=== PATIENT | male | born 1960 | race Asian ===

== ENCOUNTER 2018-07-01 21:39 | Inpatient (IN) | payer BC, OTHER ==
[~2018-07-01] VITALS: Ht 157.5 cm; Wt 66.5 kg
[2018-07-01 23:20] LABS: Basophils # (auto) 0 uL; Basophils % (auto) 0.3 % (0.0-2.0); Eosinophils # (auto) 0.1 uL; Eosinophils % (auto) 0.8 % (0.0-7.0); Hematocrit 40.2 % (41.0-53.0); Hemoglobin 13.3 g/dL (13.5-17.5); Lymphocytes # (auto) 0.9 uL; Lymphocytes % (auto) 6.8 % (10.0-50.0); Mean Corpuscular Hgb Conc. 33.1 g/dL (32.0-36.0); Mean Corpuscular Volume 93.7 fL (80.0-100.0); Monocytes # (auto) 0.8 uL; Monocytes % (auto) 6.4 % (0.0-12.0); Neutrophils # (auto) 10.8 uL; Neutrophils % (auto) 85.7 % (37.0-80.0); Nucleated Red Blood Cells % 0.1 %; Platelet Count (auto) 279 10^3/uL (140-450); Red Blood Cells 4.29 10^6/uL (4.5-5.90); White Blood Cell 12.6 10^3/uL (4.4-10.8)
[2018-07-01 23:44] LABS: Albumin 3.4 g/dL (3.4-5.0); Calcium 7.9 mg/dL (8.5-10.1); Potassium 5.1 mmol/L (3.5-5.1)
[2018-07-01 23:49] LABS: BUN/Creatinine Ratio 18.5; Bilirubin, Total 0.9 mg/dL (0.2-1.0); Total Protein 7.8 g/dL (6.4-8.2)
[2018-07-02] MEDS ORDERED: ASPirin 81 mg TAB PO ONE ×2 (00:15→01:45)
[2018-07-02 00:39] LABS: INR 1.33 (0.9-1.15); Partial Thromboplastin Time 24.5 sec (23.78-33.04)
[2018-07-02] MEDS ORDERED: HEPARIN DRIP/D5W 100UNITS/ML 250 ML IV SCH ×2 (01:40→06:08)
[2018-07-02] MEDS ORDERED: HEPARIN SODIUM (PORCINE) 5000 UNITS/ML 1ML VIAL IV ONE ×2 (01:45→06:15)
[2018-07-02] MEDS ORDERED: FUROSEMIDE 20 MG/2 ML VIAL IV ONE (02:00)
[2018-07-02 02:33] LABS: INR 1.31 (0.9-1.15); Partial Thromboplastin Time 23.6 sec (23.78-33.04); Prothrombin Time 13.8 sec (9.27-12.13)
[2018-07-02 05:32] LABS: Albumin 3.2 g/dL (3.4-5.0); Calcium 7.3 mg/dL (8.5-10.1); Magnesium 2.3 mg/dL (1.6-2.6); Potassium 4.7 mmol/L (3.5-5.1)
[2018-07-02 05:37] LABS: BUN/Creatinine Ratio 22.3; Bilirubin, Total 0.9 mg/dL (0.2-1.0); Total Protein 7.2 g/dL (6.4-8.2)
[2018-07-02] MEDS ORDERED: SODIUM CHLOR 0.9% PF (SALINE LOCK) 10ML VIAL/SYR IV SCH (06:00)
[2018-07-02 06:07] LABS: Urine Bacteria FEW /hpf (None Seen); Urine Blood Negative /uL (Negative); Urine Hyaline Cast MOD /lpf (0 - 2); Urine Mucus FEW (None Seen); Urine Specific Gravity 1.008 (1.001-1.035); Urine WBC 1 /hpf (0 - 3)
[2018-07-02] MEDS ORDERED: HEPARIN SODIUM (PORCINE) 5000 UNITS/ML 1ML VIAL ONE (06:19)
[2018-07-02] MEDS ORDERED: CLOPIDOGREL BISULFATE 75 MG TAB PO ONE (07:00)
[2018-07-02 07:13] LABS: Basophils # (auto) 0.1 uL; Basophils % (auto) 0.5 % (0.0-2.0); Eosinophils # (auto) 0 uL; Eosinophils % (auto) 0.2 % (0.0-7.0); Hematocrit 38.2 % (41.0-53.0); Hemoglobin 12.4 g/dL (13.5-17.5); Lymphocytes % (auto) 10.6 % (10.0-50.0); Mean Corpuscular Hemoglobin 30.5 pg (28.0-32.0); Mean Corpuscular Hgb Conc. 32.4 g/dL (32.0-36.0); Monocytes # (auto) 0.8 uL; Monocytes % (auto) 8.8 % (0.0-12.0); Neutrophils # (auto) 7.7 uL; Neutrophils % (auto) 79.9 % (37.0-80.0); Platelet Count (auto) 249 10^3/uL (140-450); Red Blood Cells 4.06 10^6/uL (4.5-5.90); Red Cell Distribution Width 13.1 % (11.8-14.3); White Blood Cell 9.6 10^3/uL (4.4-10.8)
[2018-07-02 07:28] LABS: INR 1.47 (0.9-1.15); Prothrombin Time 15.4 sec (9.27-12.13)
[2018-07-02 07:29] LABS: Calcium 7.3 mg/dL (8.5-10.1); Magnesium 2.2 mg/dL (1.6-2.6); Potassium 4.5 mmol/L (3.5-5.1)
[2018-07-02 07:34] LABS: BUN/Creatinine Ratio 23.1; Bilirubin, Total 0.8 mg/dL (0.2-1.0)
[2018-07-02 07:36] LABS: Partial Thromboplastin Time 96.5 sec (23.78-33.04)
[2018-07-02] MEDS ORDERED: ONDANSETRON HCL 4 MG/2 ML VIAL IV PRN (08:15)
[2018-07-02] MEDS ORDERED: NITROGLYCERIN 0.4 MG SL TAB SL PRN (08:15)
[2018-07-02] MEDS ORDERED: ACETAMINOPHEN 500 MG TAB PO PRN (08:15)
[2018-07-02] MEDS ORDERED: MORPHINE SULFATE 10 MG/ML INJ 1ML SDV IV PRN (08:15)
[2018-07-02 09:11] LABS: Cholesterol 142 mg/dL (< 200); HDL Cholesterol 30 mg/dL (40-59); LDL Cholesterol 113 mg/dL (< 100); Triglycerides 68 mg/dL (< 150)
[2018-07-02 10:41] LABS: INR 1.26 (0.9-1.15); Partial Thromboplastin Time 31.2 sec (23.78-33.04); Prothrombin Time 13.3 sec (9.27-12.13)
[2018-07-02] MEDS: HEPARIN DRIP/D5W 100UNITS/ML 250 ML IV SCH ×2 (11:24→18:49)
--- NOTE | 2018-07-02 11:46 | NUR ---
ADMIT NOTE PATIENT ARRIVED TO FLOOR. ORIENTATED TO MASHA ZURITA AND STUDENT NURSE KAREN.. PATIENT RESTING IN BED SEMI HOWARD. RESPIRATIONS EVEN AND UNLABORED. A&O x4. NO S/S OF OR DISTRESS. DENIES PAIN. ON 1L NC. TELE #39. ACCOMPANIED BY . PATIENT UPDATED ON POC. ALL QUESTIONS ANSWERED. ORIENTATED TO FLOOR. BED IN LOWEST LOCKED POSITION. SIDE RAILS UP x2. CALL LIGHT WITHIN REACH. WILL CONTINUE TO MONITOR Q1HR AND PRN. Signed: 07/02/18 at 1345 by SN DARLINE <Co-Signature Required> Co-Signed: 07/02/18 at 1345 by Marsha Rosado RN
[2018-07-02 11:49] VITALS: BP 96/61
[2018-07-02 13:00] VITALS: BP 96/61
[2018-07-02] MEDS ORDERED: SODIUM CHLORIDE 0.9% 1,000 ML IV ONE (13:00)
--- NOTE | 2018-07-02 13:05 | NUR ---
MD was at bedside - Dr. Sofia Black was at bedside discussing POC with the patient and patient's spouse at bedside. POC discussed with this RN. Verbal orders received. MD to place orders.
--- NOTE | 2018-07-02 13:15 | NUR ---
IV started 20G IV started to the RAC with clean technique on the second attempt. IV secured. IV education provided to the patient. Patient verbalized understanding.
--- NOTE | 2018-07-02 13:55 | NUR ---
I spoke with [facility] Flour Inspector Tyra Salinas, patient to be transferred to [facility], awaiting bed assignment-auth number for [facility] is [id number], I placed [facility] on will-call and relayed this information to nurse Larson.
[2018-07-02] MEDS: SODIUM CHLOR 0.9% PF (SALINE LOCK) 10ML VIAL/SYR IV SCH ×2 (14:00→22:29)
--- NOTE | 2018-07-02 14:50 | NUR ---
RE: critical troponin Critical troponin received by Armando, student assistant customer service manager, and Sanjuanita, unit manager rn, while this RN was at lunch. Lab value trending down. Dr. Black aware of troponin level. Will continue to monitor q1hr & PRN.
--- NOTE | 2018-07-02 16:10 | NUR ---
Patient resting in bed with even and unlabored respirations. Patient denies pain at this time. Heparin infusing as orders. Family member at bedside. Call light within reach.
--- NOTE | 2018-07-02 17:04 | NUR ---
Paged on-call manager social services Paged ROBERT Payne, to receive update on transfer to [facility]. Spoke with NAYELY Elizabeth.
--- NOTE | 2018-07-02 17:09 | NUR ---
Received phone call from on-call ROBERT Spoke with ROBERT Payne. This RN instructed that [facility] will contact the primary nurse when a bed has been assigned to the patient.
--- NOTE | 2018-07-02 17:12 | NUR ---
Called housekeeping associate at [facility] To check bed availability. No answer. Voicemail left.
[2018-07-02 17:14] VITALS: BP 104/74
[2018-07-02 18:09] LABS: INR 1.26 (0.9-1.15); Partial Thromboplastin Time 39.5 sec (23.78-33.04); Prothrombin Time 13.3 sec (9.27-12.13)
--- NOTE | 2018-07-02 18:32 | NUR ---
RE: critical troponin Received critical troponin result. Level is trending down. Dr. Black and Dr. Rodriguez are aware of elevated troponin. Patient denies CP and SOB. Will continue to monitor q1hr & PRN.
--- NOTE | 2018-07-02 18:40 | NUR ---
RE: Heparin and Xarelto concurrently Spoke with Dr. Rodriguez. Patient is to receive two scheduled doses of Xarelto while continuing Heparin concurrently. After the second dose of Xarelto, Heparin is to be discontinued per Dr. Rodriguez. Pharmacist has been informed.
--- NOTE | 2018-07-02 19:27 | NUR ---
End of shift patient resting in bed with even and unlabored respirations on 1L NC. Patient instructed on bedrest orders. Patient verbalized understanding. IV sites are patent with no s/s of phlebitis or infiltration noted. Family at bedside. Family and patient are aware of pending transfer to [facility]. Care endorsed to MASHA Barclay.
--- NOTE | 2018-07-02 20:03 | NUR ---
PAGED DR SWAN REGARDING PATIENT HR 130-140S. RECEIVED ORDER FOR METOPROLOL 50MG PO NOW. TORBO.
[2018-07-02] MEDS ORDERED: METOPROLOL TARTRATE 50 MG TAB PO ONE (20:15)
--- NOTE | 2018-07-02 20:20 | NUR ---
ADMINISTERED METOPROLOL 50MG PO PRESCRIBED, PATIENT TOLERATED WELL. PATIENT CONTINUES ON HEPARIN GTT 9.5ML/HR. WILL CONTINUE TO MONITOR PATIENT.
[2018-07-02] MEDS ORDERED: OMEP20TA PO (20:23)
[2018-07-02] MEDS ORDERED: METO-158 PO (20:23)
[2018-07-02] MEDS ORDERED: SIMV-13 PO (20:23)
[2018-07-02 22:00] VITALS: BP 113/80
[2018-07-02] MEDS ORDERED: ATORVASTATIN 20 MG TAB PO SCH (22:00)
[2018-07-02] MEDS: RIVAROXABAN 15 MG TAB PO SCH (22:28)
--- NOTE | 2018-07-02 22:31 | NUR ---
PAGED DR SWAN REGARDING PATIENT HR REMAINS 135-140S SUSTAINED. RECEIVED ORDER FOR DIGOXIN 0.5MG IVP X1. TORBO.
[2018-07-02] MEDS ORDERED: DIGOXIN (250MCG/ML) 2 ML AMPULE IV ONE (23:00)
--- NOTE | 2018-07-02 23:15 | NUR ---
PATIENT CURRENT TELEMETRY ST 138 SUSTAINED. ALERTED TANBARK LABORER TO WATCH PATIENT TELEMETRY DURING DIGOXIN IV PUSH. ADMINISTERED DIGOXIN 0.5M IVP PRESCRIBED. PATIENT TOLERATED WELL. WILL CONTINUE TO MONTIOR PATIENT.
--- NOTE | 2018-07-02 23:46 | NUR ---
PATIENT CURRENTLY HR 115-120S
[2018-07-03 01:26] LABS: INR 1.68 (0.9-1.15); Prothrombin Time 17.5 sec (9.27-12.13)
[2018-07-03 01:30] LABS: Partial Thromboplastin Time 115.5 sec (23.78-33.04)
--- NOTE | 2018-07-03 01:35 | NUR ---
PATIENT CURRENT PTT 115.55. PER HEPARIN GTT PROTOCOL HOLD FOR 1 HR AND DECREASE RATE BY 3ML/HR 9.5ML/HR TO 6.5ML/HR. WILL RESTART HEPARIN GTT 0230
[2018-07-03 05:22] VITALS: BP 116/54
[2018-07-03] MEDS: SODIUM CHLOR 0.9% PF (SALINE LOCK) 10ML VIAL/SYR IV SCH ×2 (05:39→13:04)
[2018-07-03 06:50] LABS: Basophils # (auto) 0.1 uL; Basophils % (auto) 0.9 % (0.0-2.0); Eosinophils # (auto) 0 uL; Eosinophils % (auto) 0.5 % (0.0-7.0); Hematocrit 35.9 % (41.0-53.0); Hemoglobin 11.9 g/dL (13.5-17.5); Lymphocytes # (auto) 0.9 uL; Lymphocytes % (auto) 9.7 % (10.0-50.0); Mean Corpuscular Hemoglobin 31.6 pg (28.0-32.0); Mean Corpuscular Hgb Conc. 33.3 g/dL (32.0-36.0); Mean Corpuscular Volume 94.8 fL (80.0-100.0); Monocytes # (auto) 0.7 uL; Neutrophils # (auto) 7.2 uL; Neutrophils % (auto) 80.9 % (37.0-80.0); Nucleated Red Blood Cells % 0.1 %; Platelet Count (auto) 226 10^3/uL (140-450); Red Blood Cells 3.78 10^6/uL (4.5-5.90); Red Cell Distribution Width 13.5 % (11.8-14.3)
[2018-07-03 07:00] LABS: INR 1.41 (0.9-1.15); Partial Thromboplastin Time 67.1 sec (23.78-33.04); Prothrombin Time 14.8 sec (9.27-12.13)
[2018-07-03 07:02] LABS: Calcium 7.1 mg/dL (8.5-10.1); Potassium 4.2 mmol/L (3.5-5.1)
[2018-07-03 07:06] LABS: BUN/Creatinine Ratio 28.5
--- NOTE | 2018-07-03 07:17 | NUR ---
HEPARIN GTT NO CHANGE HEPARIN GTT IS CURRENTLY 6.5ML/HR. CURRENT PTT 67.1 NO CHANGE IN HEPARIN GTT RATE. CONTINUE THERAPY.
--- NOTE | 2018-07-03 07:20 | NUR ---
Opening Shift Note Assumed care of patient, awake and alert. No S/S of distress/SOB or pain. Heparin drip currently infusing. Orders noted to stop heparin @ 1000 after second Xarelto dose. Insructed on POC and to callfor assist PRN, will continue to monitor for changes Q1hr and PRN.
[2018-07-03 08:00] VITALS: BP 113/67
[2018-07-03 09:06] VITALS: BP 113/67
[2018-07-03] MEDS ORDERED: METOPROLOL TARTRATE 50 MG TAB PO SCH (10:00)
[2018-07-03] MEDS ORDERED: ASPirin-EC 81 mg tab PO SCH (10:00)
[2018-07-03] MEDS ORDERED: ASPirin 81 mg TAB PO SCH ×2 (10:00)
--- NOTE | 2018-07-03 10:10 | NUR ---
Heparin IV Heparin stopped after second Xarelto dose per order.
[2018-07-03] MEDS: RIVAROXABAN 15 MG TAB PO SCH (10:16)
[2018-07-03] MEDS ORDERED: HEPARIN DRIP/D5W 100UNITS/ML 250 ML IV SCH (11:44)
[2018-07-03] MEDS ORDERED: HEPARIN SODIUM (PORCINE) 5000 UNITS/ML 1ML VIAL IV ONE (11:45)
[2018-07-03] MEDS ORDERED: SODIUM CHLORIDE 0.9% 1,000 ML IV SCH (12:00)
[2018-07-03 12:31] LABS: INR 1.54 (0.9-1.15); Partial Thromboplastin Time 40.7 sec (23.78-33.04); Prothrombin Time 16.1 sec (9.27-12.13)
[2018-07-03 12:55] LABS: Basophils # (auto) 0.1 uL; Basophils % (auto) 0.5 % (0.0-2.0); Eosinophils # (auto) 0.2 uL; Eosinophils % (auto) 1.9 % (0.0-7.0); Hemoglobin 12.1 g/dL (13.5-17.5); Lymphocytes % (auto) 9.8 % (10.0-50.0); Mean Corpuscular Hemoglobin 31.4 pg (28.0-32.0); Mean Corpuscular Hgb Conc. 32.8 g/dL (32.0-36.0); Mean Corpuscular Volume 95.9 fL (80.0-100.0); Monocytes # (auto) 0.9 uL; Monocytes % (auto) 9.1 % (0.0-12.0); Neutrophils # (auto) 8.1 uL; Neutrophils % (auto) 78.7 % (37.0-80.0); Nucleated Red Blood Cells % 0.1 %; Platelet Count (auto) 237 10^3/uL (140-450); Red Blood Cells 3.86 10^6/uL (4.5-5.90); Red Cell Distribution Width 13.8 % (11.8-14.3); White Blood Cell 10.3 10^3/uL (4.4-10.8)
[2018-07-03 13:09] VITALS: BP 116/64
--- NOTE | 2018-07-03 13:30 | NUR ---
Heparin drip Heparin restarted per Dr. Black after labs obtained. Heparin started @ 12 cc/hr per protocol.
[2018-07-03 17:16] VITALS: BP 117/65
--- NOTE | 2018-07-03 17:20 | NUR ---
[facility] Notified by Dr. Black that bed available at [facility] for room 235A.
--- NOTE | 2018-07-03 17:35 | NUR ---
Instructed by Dr. Black to stop Heparin while patient in transport. Heparin to be restarted once patient gets to [facility].
[2018-07-03 17:49] VITALS: BP 116/64
--- NOTE | 2018-07-03 17:56 | NUR ---
Transport to [facility] Report called to Ermelinda FLANAGAN at [facility]. Patient's Cassia called to give update. puppet master set for around 1900.
--- NOTE | 2018-07-03 19:10 | NUR ---
Pt being trans to another hosp Order obtained for transfer of ZEB GRANDA to [facility]. Report called/given to Ermelinda FLANAGAN. Report given to EMS transport team. Medication reconciliation form completed and copy given to patient. Transported via ambulance along with copied chart and imaging films/disk and all personal belongings. No distress noted on time of departure. Family notified of destination and room number, verbalized understanding. NOTE: []
== END 2018-07-03 19:25 | disposition short-term general hospital (02) | DRG 280 ==
LOC: ER 21:41 → OVERFLOW 07-02 08:13 → TELE-WESTW 07-02 11:55
PROVIDERS: ADMIT Nurse Practitioner Family; ATTEND Nurse Practitioner Family
DX: I21.4 Non-ST elevation (NSTEMI) myocardial infarction (principal); I26.99 Other pulmonary embolism without acute cor pulmonale; I42.9 Cardiomyopathy, unspecified; N17.9 Acute kidney failure, unspecified; D68.59 Other primary thrombophilia; D64.9 Anemia, unspecified; E78.5 Hyperlipidemia, unspecified; E86.0 Dehydration; I05.0 Rheumatic mitral stenosis; I08.0 Rheumatic disorders of both mitral and aortic valves; I11.0 Hypertensive heart disease with heart failure; I50.9 Heart failure, unspecified; I70.0 Atherosclerosis of aorta; K72.90 Hepatic failure, unspecified without coma; R94.5 Abnormal results of liver function studies
CPT/HCPCS: 36415; 71045; 78582; 80048; 80053; 80061; 81001; 82140; 83605; 83615; 83735; 83880; 84443; 84484; 85025; 85379; 85610; 85730; 87040; 93005; 93306; 94761; 96361; 96365; 96375; G0378

== ENCOUNTER → 2022-09-09 | Outpatient (CLI) | payer OTHER ==
[~2022-09-09] MED LIST: GASTROGRAFIN 120 ML SOL ONE; METO-158 PO; OMEP20TA PO; SIMV-13 PO
[2022-09-09 07:42] LABS: Basophils # (auto) 0.1 10 ^3/uL (0-0.2); Basophils % (auto) 1.2 % (0.0-2.0); Eosinophils # (auto) 0.4 10 ^3/uL (0-0.8); Eosinophils % (auto) 5.8 % (0.0-7.0); Hematocrit 42.6 % (41.0-53.0); Hemoglobin 14.4 g/dL (13.5-17.5); Lymphocytes # (auto) 1.5 10 ^3/uL (0.4-5.4); Lymphocytes % (auto) 22.4 % (10.0-50.0); Mean Corpuscular Hemoglobin 31.5 pg (28.0-32.0); Mean Corpuscular Hgb Conc. 33.9 g/dL (32.0-36.0); Mean Corpuscular Volume 92.8 fL (80.0-100.0); Monocytes # (auto) 0.6 10 ^3/uL (0-1.3); Monocytes % (auto) 9.2 % (0.0-12.0); Neutrophils % (auto) 61.4 % (37.0-80.0); Nucleated Red Blood Cells % 0.3 %; Red Blood Cells 4.59 10^6/uL (4.5-5.90); Red Cell Distribution Width 12.5 % (11.8-14.3); White Blood Cell 6.6 10^3/uL (4.4-10.8)
[2022-09-09 08:12] LABS: Albumin 3.8 g/dL (3.4-5.0); Bilirubin, Direct 0.2 mg/dL (0-0.2); Bilirubin, Total 0.8 mg/dL (0.2-1.0); Calcium 8.9 mg/dL (8.5-10.1); Potassium 4.2 mmol/L (3.5-5.1)
== END | disposition home or self-care (01) ==
LOC: LAB 06:53
PROVIDERS: ATTEND Specialist
DX: I10 Essential (primary) hypertension (principal); R94.5 Abnormal results of liver function studies; E11.8 Type 2 diabetes mellitus with unspecified complications; D64.9 Anemia, unspecified; E03.9 Hypothyroidism, unspecified; E78.5 Hyperlipidemia, unspecified
CPT/HCPCS: 36415; 80048; 80061; 80076; 83036; 84443; 85025; Q9963

== ENCOUNTER → 2022-11-18 | Outpatient (CLI) | payer OTHER ==
[~2022-11-18] MED LIST changes: -GASTROGRAFIN 120 ML SOL ONE
[2022-11-18 07:05] LABS: Basophils # (auto) 0.1 10 ^3/uL (0-0.2); Basophils % (auto) 1.1 % (0.0-2.0); Eosinophils # (auto) 0.6 10 ^3/uL (0-0.8); Eosinophils % (auto) 8.8 % (0.0-7.0); Hematocrit 41.3 % (41.0-53.0); Hemoglobin 13.9 g/dL (13.5-17.5); Lymphocytes # (auto) 1.6 10 ^3/uL (0.4-5.4); Lymphocytes % (auto) 24.8 % (10.0-50.0); Mean Corpuscular Hgb Conc. 33.8 g/dL (32.0-36.0); Mean Corpuscular Volume 91.8 fL (80.0-100.0); Monocytes # (auto) 0.6 10 ^3/uL (0-1.3); Monocytes % (auto) 8.7 % (0.0-12.0); Neutrophils # (auto) 3.6 10 ^3/uL (1.6-8.6); Neutrophils % (auto) 56.6 % (37.0-80.0); Nucleated Red Blood Cells % 0.1 %; Red Blood Cells 4.49 10^6/uL (4.5-5.90); Red Cell Distribution Width 12.4 % (11.8-14.3); White Blood Cell 6.4 10^3/uL (4.4-10.8)
[2022-11-18 07:52] LABS: Albumin 3.9 g/dL (3.4-5.0); Calcium 8.8 mg/dL (8.5-10.1); Potassium 4.3 mmol/L (3.5-5.1); Uric Acid 10.2 mg/dL (3.5-7.2)
[2022-11-18 07:57] LABS: BUN/Creatinine Ratio 15.2 (10.0-20.0); Bilirubin, Direct 0.2 mg/dL (0-0.2); Bilirubin, Total 0.9 mg/dL (0.2-1.0); Total Protein 7.8 g/dL (6.4-8.2)
== END | disposition home or self-care (01) ==
LOC: LAB 06:47
PROVIDERS: ATTEND Specialist
DX: I10 Essential (primary) hypertension (principal); R94.5 Abnormal results of liver function studies; D64.9 Anemia, unspecified; E78.5 Hyperlipidemia, unspecified; E11.8 Type 2 diabetes mellitus with unspecified complications; E03.9 Hypothyroidism, unspecified
CPT/HCPCS: 36415; 80053; 80061; 80076; 84550; 85025

== ENCOUNTER → 2023-07-03 | Outpatient (CLI) | payer OTHER ==
[~2023-07-03] MED LIST changes: -SIMV-13 PO; +SIMV40TA18 PO
[2023-07-03 07:03] LABS: Anion Gap 9 (5-15); Carbon Dioxide 24 mmol/L (20-30); Chloride 103 mmol/L (98-107); Potassium 4.5 mmol/L (3.5-5.1); Sodium 136 mmol/L (136-145)
[2023-07-03 07:04] LABS: Calcium 9.5 mg/dL (8.5-10.1)
[2023-07-03 07:09] LABS: BUN/Creatinine Ratio 11.6 (10.0-20.0); Blood Urea Nitrogen 13 mg/dL (9-23); Glucose 96 mg/dL (74-106); Triglycerides 79 mg/dL (< 150)
[2023-07-03 07:10] LABS: LDL Cholesterol 95 mg/dL (< 100)
[2023-07-03 07:11] LABS: Cholesterol 143 mg/dL (< 200); HDL Cholesterol 40 mg/dL (40-59)
[2023-07-03 07:36] LABS: Basophils # (auto) 0 10 ^3/uL (0-0.2); Basophils % (auto) 0.8 % (0.0-2.0); Eosinophils # (auto) 0.2 10 ^3/uL (0-0.8); Eosinophils % (auto) 3.5 % (0.0-7.0); Hematocrit 41.9 % (41.0-53.0); Hemoglobin 13.7 g/dL (13.5-17.5); Lymphocytes # (auto) 1.6 10 ^3/uL (0.4-5.4); Mean Corpuscular Hemoglobin 30.4 pg (28.0-32.0); Mean Corpuscular Hgb Conc. 32.8 g/dL (32.0-36.0); Mean Corpuscular Volume 92.8 fL (80.0-100.0); Monocytes # (auto) 0.8 10 ^3/uL (0-1.3); Monocytes % (auto) 14.2 % (0.0-12.0); Neutrophils # (auto) 2.9 10 ^3/uL (1.6-8.6); Neutrophils % (auto) 52.5 % (37.0-80.0); Nucleated Red Blood Cells % 0.4 %; Red Blood Cells 4.52 10^6/uL (4.5-5.90); Red Cell Distribution Width 13.1 % (11.8-14.3); White Blood Cell 5.5 10^3/uL (4.4-10.8)
[2023-07-03 13:33] LABS: Creatinine, Urine 29.3 mg/dL (30.0-125.0)
== END | disposition home or self-care (01) ==
LOC: LAB 06:10
PROVIDERS: ATTEND Internal Medicine Hematology & Oncology
DX: I10 Essential (primary) hypertension (principal); E11.69 Type 2 diabetes mellitus with other specified complication; E11.59 Type 2 diabetes mellitus with other circulatory complications; E78.5 Hyperlipidemia, unspecified; I48.0 Paroxysmal atrial fibrillation; Z95.818 Presence of other cardiac implants and grafts
CPT/HCPCS: 36415; 80048; 80061; 82043; 82570; 83036; 85025

== ENCOUNTER → 2023-08-03 | Outpatient (CLI) | payer OTHER ==
[2023-08-03 07:04] LABS: Basophils # (auto) 0.1 10 ^3/uL (0-0.2); Eosinophils # (auto) 0.6 10 ^3/uL (0-0.8); Eosinophils % (auto) 6.3 % (0.0-7.0); Hematocrit 42.3 % (41.0-53.0); Hemoglobin 14.1 g/dL (13.5-17.5); Lymphocytes # (auto) 1.5 10 ^3/uL (0.4-5.4); Lymphocytes % (auto) 16.5 % (10.0-50.0); Mean Corpuscular Hemoglobin 30.7 pg (28.0-32.0); Mean Corpuscular Hgb Conc. 33.3 g/dL (32.0-36.0); Mean Corpuscular Volume 92.4 fL (80.0-100.0); Monocytes # (auto) 0.8 10 ^3/uL (0-1.3); Monocytes % (auto) 9.1 % (0.0-12.0); Neutrophils # (auto) 6.1 10 ^3/uL (1.6-8.6); Neutrophils % (auto) 67.1 % (37.0-80.0); Red Blood Cells 4.58 10^6/uL (4.5-5.90); White Blood Cell 9.1 10^3/uL (4.4-10.8)
[2023-08-03 07:40] LABS: Alanine Aminotransferase 23 U/L (7-40); Albumin 4.5 g/dL (3.2-4.8); Alkaline Phosphatase 81 U/L (46-116); Anion Gap 8 (5-15); Aspartate Aminotransferase 27 U/L (13-40); BUN/Creatinine Ratio 14.2 (10.0-20.0); Bilirubin, Direct 0.3 mg/dL (<0.3); Bilirubin, Total 1.1 mg/dL (0.2-1.0); Blood Urea Nitrogen 17 mg/dL (9-23); Calcium 9.5 mg/dL (8.5-10.1); Carbon Dioxide 25 mmol/L (20-30); Chloride 103 mmol/L (98-107); Cholesterol 180 mg/dL (< 200); Glucose 153 mg/dL (74-106); HDL Cholesterol 47 mg/dL (40-59); LDL Cholesterol 116 mg/dL (< 100); Potassium 4.7 mmol/L (3.5-5.1); Sodium 136 mmol/L (136-145); Total Protein 7.9 g/dL (5.7-8.2); Triglycerides 147 mg/dL (< 150)
== END | disposition home or self-care (01) ==
LOC: LAB 06:13
PROVIDERS: ATTEND Specialist
DX: I10 Essential (primary) hypertension (principal); R68.89 Other general symptoms and signs; D64.9 Anemia, unspecified; E03.9 Hypothyroidism, unspecified; E78.5 Hyperlipidemia, unspecified; E11.9 Type 2 diabetes mellitus without complications
CPT/HCPCS: 36415; 80053; 80061; 82248; 85025

== ENCOUNTER → 2023-10-14 | Outpatient (CLI) | payer OTHER ==
[2023-10-14 07:15] LABS: Basophils # (auto) 0.1 10 ^3/uL (0-0.2); Basophils % (auto) 0.9 % (0.0-2.0); Eosinophils # (auto) 0.5 10 ^3/uL (0-0.8); Eosinophils % (auto) 7.6 % (0.0-7.0); Hematocrit 41.6 % (41.0-53.0); Hemoglobin 13.9 g/dL (13.5-17.5); Lymphocytes # (auto) 1.2 10 ^3/uL (0.4-5.4); Lymphocytes % (auto) 18.1 % (10.0-50.0); Mean Corpuscular Hemoglobin 30.7 pg (28.0-32.0); Mean Corpuscular Hgb Conc. 33.4 g/dL (32.0-36.0); Mean Corpuscular Volume 91.8 fL (80.0-100.0); Monocytes # (auto) 0.5 10 ^3/uL (0-1.3); Neutrophils # (auto) 4.2 10 ^3/uL (1.6-8.6); Neutrophils % (auto) 65.4 % (37.0-80.0); Red Blood Cells 4.53 10^6/uL (4.5-5.90); White Blood Cell 6.4 10^3/uL (4.4-10.8)
[2023-10-14 07:48] LABS: Alanine Aminotransferase 21 U/L (7-40); Albumin 4.5 g/dL (3.2-4.8); Alkaline Phosphatase 65 U/L (46-116); Anion Gap 9 (5-15); Aspartate Aminotransferase 22 U/L (13-40); BUN/Creatinine Ratio 22.8 (10.0-20.0); Blood Urea Nitrogen 26 mg/dL (9-23); Calcium 9.5 mg/dL (8.5-10.1); Carbon Dioxide 23 mmol/L (20-30); Chloride 105 mmol/L (98-107); Cholesterol 170 mg/dL (< 200); Glucose 129 mg/dL (74-106); LDL Cholesterol 115 mg/dL (< 100); Potassium 4.2 mmol/L (3.5-5.1); Sodium 137 mmol/L (136-145); Triglycerides 100 mg/dL (< 150)
[2023-10-14 07:49] LABS: Bilirubin, Direct 0.3 mg/dL (<0.3); Bilirubin, Total 1.2 mg/dL (0.2-1.0); HDL Cholesterol 43 mg/dL (40-59); Total Protein 7.9 g/dL (5.7-8.2)
== END | disposition home or self-care (01) ==
LOC: LAB 06:37
PROVIDERS: ATTEND Internal Medicine Hematology & Oncology
DX: E11.69 Type 2 diabetes mellitus with other specified complication (principal); E78.5 Hyperlipidemia, unspecified
CPT/HCPCS: 36415; 80048; 80061; 80076; 83036; 83615; 85025

== ENCOUNTER → 2023-11-03 | Outpatient (CLI) | payer OTHER | END | disposition home or self-care (01) | LOC: LAB 06:39 | PROVIDERS: ATTEND Specialist | DX: I10 Essential (primary) hypertension (principal); E11.9 Type 2 diabetes mellitus without complications; E78.5 Hyperlipidemia, unspecified; E03.9 Hypothyroidism, unspecified; D64.9 Anemia, unspecified; E55.9 Vitamin D deficiency, unspecified; R68.89 Other general symptoms and signs | CPT/HCPCS: 36415; 82306; 83735 ==

== ENCOUNTER → 2024-01-22 | Outpatient (CLI) | payer OTHER ==
[2024-01-22 07:14] LABS: Urine Bacteria None Seen /hpf (None Seen); Urine WBC None Seen /hpf (0 - 3)
[2024-01-22 07:34] LABS: Basophils # (auto) 0.1 10 ^3/uL (0-0.2); Basophils % (auto) 1.1 % (0.0-2.0); Eosinophils # (auto) 0.6 10 ^3/uL (0-0.8); Eosinophils % (auto) 7.7 % (0.0-7.0); Hematocrit 39.1 % (41.0-53.0); Hemoglobin 13.2 g/dL (13.5-17.5); Lymphocytes # (auto) 1.3 10 ^3/uL (0.4-5.4); Lymphocytes % (auto) 16.3 % (10.0-50.0); Mean Corpuscular Hemoglobin 31.2 pg (28.0-32.0); Mean Corpuscular Hgb Conc. 33.9 g/dL (32.0-36.0); Mean Corpuscular Volume 92.1 fL (80.0-100.0); Monocytes # (auto) 0.7 10 ^3/uL (0-1.3); Monocytes % (auto) 9.1 % (0.0-12.0); Neutrophils # (auto) 5.1 10 ^3/uL (1.6-8.6); Neutrophils % (auto) 65.8 % (37.0-80.0); Red Blood Cells 4.24 10^6/uL (4.5-5.90); Red Cell Distribution Width 12.9 % (11.8-14.3); White Blood Cell 7.7 10^3/uL (4.4-10.8)
[2024-01-22 08:02] LABS: Alanine Aminotransferase 36 U/L (7-40); Alkaline Phosphatase 78 U/L (46-116); Anion Gap 9 (5-15); BUN/Creatinine Ratio 18.3 (10.0-20.0); Blood Urea Nitrogen 21 mg/dL (9-23); Calcium 9.2 mg/dL (8.7-10.4); Carbon Dioxide 23 mmol/L (20-30); Chloride 105 mmol/L (98-107); Glucose 167 mg/dL (74-106); Potassium 4.3 mmol/L (3.5-5.1); Sodium 137 mmol/L (136-145)
[2024-01-22 08:03] LABS: Albumin 4.2 g/dL (3.2-4.8); Aspartate Aminotransferase 21 U/L (13-40)
[2024-01-22 08:04] LABS: Bilirubin, Total 0.8 mg/dL (0.2-1.0); Total Protein 7.4 g/dL (5.7-8.2)
[2024-01-22 10:19] LABS: Urine Blood Negative /uL (Negative); Urine Clarity Clear (Clear); Urine Color Colorless (Yellow); Urine Protein, UAD Negative (Negative); Urine Specific Gravity 1.003 (1.001-1.035); Urine Urobilinogen Normal (Negative); Urine pH 5.5 (5.0-9.0)
[2024-01-22 10:47] LABS: Creatinine, Urine 12.52 mg/dL (30.0-125.0)
== END | disposition home or self-care (01) ==
LOC: LAB 06:56
PROVIDERS: ATTEND Internal Medicine Hematology & Oncology
DX: E11.69 Type 2 diabetes mellitus with other specified complication (principal)
CPT/HCPCS: 36415; 80053; 81001; 82043; 82570; 83036; 84439; 84443; 85025; 87086

== ENCOUNTER → 2024-03-16 | Outpatient (CLI) | payer OTHER ==
[~2024-03-16] VITALS: Ht 157.5 cm; Wt 60.8 kg
[~2024-03-16] MED LIST changes: +METOPROLOL TARTRATE 1MG/1ML-5ML VIAL IV ONE
[2024-03-16] MEDS: REGADENOSON 0.4 MG/5 ML SYRG IV ONE ×2 (12:08→12:36)
== END | disposition home or self-care (01) ==
LOC: XYW 10:33
PROVIDERS: ATTEND Specialist
DX: I48.91 Unspecified atrial fibrillation (principal); I13.0 Hypertensive heart and chronic kidney disease with heart failure and stage 1 through stage 4 chronic kidney disease, or unspecified chronic kidney disease; I50.22 Chronic systolic (congestive) heart failure; N18.9 Chronic kidney disease, unspecified; R06.00 Dyspnea, unspecified; I80.9 Phlebitis and thrombophlebitis of unspecified site; E78.5 Hyperlipidemia, unspecified
CPT/HCPCS: 78452; 93017; A9500; J2785

== ENCOUNTER → 2024-03-31 | Outpatient (CLI) | payer OTHER ==
[~2024-03-31] MED LIST changes: -METOPROLOL TARTRATE 1MG/1ML-5ML VIAL IV ONE
[2024-03-31 07:52] LABS: Basophils # (auto) 0.1 10 ^3/uL (0-0.2); Basophils % (auto) 1.1 % (0.0-2.0); Eosinophils # (auto) 0.6 10 ^3/uL (0-0.8); Eosinophils % (auto) 8.6 % (0.0-7.0); Hemoglobin 14.1 g/dL (13.5-17.5); Lymphocytes # (auto) 1.5 10 ^3/uL (0.4-5.4); Mean Corpuscular Hemoglobin 31.4 pg (28.0-32.0); Mean Corpuscular Hgb Conc. 34.3 g/dL (32.0-36.0); Mean Corpuscular Volume 91.5 fL (80.0-100.0); Monocytes # (auto) 0.6 10 ^3/uL (0-1.3); Monocytes % (auto) 8.8 % (0.0-12.0); Neutrophils # (auto) 4.2 10 ^3/uL (1.6-8.6); Neutrophils % (auto) 60.5 % (37.0-80.0); Platelet Count (auto) 192 10^3/uL (140-450); Red Blood Cells 4.48 10^6/uL (4.5-5.90); Red Cell Distribution Width 12.6 % (11.8-14.3); White Blood Cell 6.9 10^3/uL (4.4-10.8)
[2024-03-31 08:15] LABS: Alanine Aminotransferase 22 U/L (7-40); Albumin 4.5 g/dL (3.2-4.8); Alkaline Phosphatase 77 U/L (46-116); Anion Gap 9 (5-15); Aspartate Aminotransferase 18 U/L (13-40); Bilirubin, Direct 0.2 mg/dL (<0.3); Blood Urea Nitrogen 20 mg/dL (9-23); Calcium 9.7 mg/dL (8.7-10.4); Carbon Dioxide 24 mmol/L (20-31); Chloride 105 mmol/L (98-107); Cholesterol 195 mg/dL (< 200); Glucose 117 mg/dL (74-106); HDL Cholesterol 41 mg/dL (40-59); LDL Cholesterol 139 mg/dL (< 100); Potassium 4.4 mmol/L (3.5-5.1); Sodium 138 mmol/L (136-145); Triglycerides 126 mg/dL (< 150)
[2024-03-31 08:16] LABS: Bilirubin, Total 0.9 mg/dL (0.2-1.0); Total Protein 7.8 g/dL (5.7-8.2)
== END | disposition home or self-care (01) ==
LOC: LAB 07:17
PROVIDERS: ATTEND Specialist
DX: I10 Essential (primary) hypertension (principal); E78.5 Hyperlipidemia, unspecified; E03.9 Hypothyroidism, unspecified; D64.9 Anemia, unspecified; E11.9 Type 2 diabetes mellitus without complications; R68.89 Other general symptoms and signs
CPT/HCPCS: 36415; 80053; 80061; 82248; 83036; 84443; 85025

== ENCOUNTER → 2024-05-13 | Outpatient (CLI) | payer OTHER ==
[2024-05-13 06:43] LABS: Basophils # (auto) 0.2 10 ^3/uL (0-0.2); Basophils % (auto) 3.5 % (0.0-2.0); Eosinophils # (auto) 0.7 10 ^3/uL (0-0.8); Eosinophils % (auto) 10.9 % (0.0-7.0); Hematocrit 41.9 % (41.0-53.0); Hemoglobin 14.1 g/dL (13.5-17.5); Lymphocytes # (auto) 1.3 10 ^3/uL (0.4-5.4); Lymphocytes % (auto) 21.5 % (10.0-50.0); Mean Corpuscular Hemoglobin 30.6 pg (28.0-32.0); Mean Corpuscular Hgb Conc. 33.6 g/dL (32.0-36.0); Mean Corpuscular Volume 91.2 fL (80.0-100.0); Monocytes # (auto) 0.6 10 ^3/uL (0-1.3); Monocytes % (auto) 9.1 % (0.0-12.0); Neutrophils # (auto) 3.4 10 ^3/uL (1.6-8.6); Platelet Count (auto) 148 10^3/uL (140-450); Red Cell Distribution Width 13.3 % (11.8-14.3); White Blood Cell 6.1 10^3/uL (4.4-10.8)
[2024-05-13 07:25] LABS: Alanine Aminotransferase 30 U/L (7-40); Albumin 4.4 g/dL (3.2-4.8); Alkaline Phosphatase 88 U/L (46-116); Anion Gap 10 (5-15); Aspartate Aminotransferase 18 U/L (13-40); BUN/Creatinine Ratio 14.5 (10.0-20.0); Bilirubin, Direct 0.3 mg/dL (<0.3); Blood Urea Nitrogen 17 mg/dL (9-23); Calcium 10.1 mg/dL (8.7-10.4); Carbon Dioxide 26 mmol/L (20-31); Chloride 104 mmol/L (98-107); Cholesterol 112 mg/dL (< 200); Glucose 131 mg/dL (74-106); HDL Cholesterol 41 mg/dL (40-59); LDL Cholesterol 58 mg/dL (< 100); Potassium 4.5 mmol/L (3.5-5.1); Sodium 140 mmol/L (136-145); Triglycerides 128 mg/dL (< 150)
[2024-05-13 07:26] LABS: Total Protein 7.9 g/dL (5.7-8.2)
== END | disposition home or self-care (01) ==
LOC: LAB 06:16
PROVIDERS: ATTEND Internal Medicine Hematology & Oncology
DX: I10 Essential (primary) hypertension (principal); E11.69 Type 2 diabetes mellitus with other specified complication; R97.20 Elevated prostate specific antigen [PSA]; I05.9 Rheumatic mitral valve disease, unspecified; I48.0 Paroxysmal atrial fibrillation; R68.89 Other general symptoms and signs; E03.9 Hypothyroidism, unspecified; D64.9 Anemia, unspecified
CPT/HCPCS: 36415; 80053; 80061; 82248; 82306; 82728; 83036; 83540; 83550; 84443; 85025